=== PATIENT | female | born 1935 | race Caucasian/White ===

== ENCOUNTER 2021-08-31 10:01 | Day surgery (SDC) | payer MEDICARE, BC ==
[2021-08-28 11:04] LABS: BASOPHILS % (AUTO) 0.7 % (0-1); EOSINOPHILS # (AUTO) 0.1 X10'3 (0-0.9); EOSINOPHILS % (AUTO) 1.5 % (0-6); HEMATOCRIT 42.2 % (35.0-45.0); HEMOGLOBIN 13.8 g/dl (12.0-16.0); LYMPHOCYTES # (AUTO) 1.1 X10'3 (1.1-4.8); LYMPHOCYTES % (AUTO) 18.8 % (21-51); MEAN CORPUSCULAR HEMOGLOBIN 30.8 PG (27.0-31.0); MEAN CORPUSCULAR HGB CONC 32.7 g/dL (33.0-36.5); MEAN CORPUSCULAR VOLUME 94.1 FL (78-98); MEAN PLATELET VOLUME 8.3 FL (7.4-10.4); MONOCYTES # (AUTO) 0.4 X10'3 (0-0.9); MONOCYTES % (AUTO) 6.6 % (2-12); NEUTROPHILS # (AUTO) 4.4 X10'3 (1.8-7.7); NEUTROPHILS % (AUTO) 72.4 % (42-75); PLATELET COUNT 259 X10'3 (140-440); RED BLOOD COUNT 4.48 X10'6 (4.20-5.60); RED CELL DISTRIBUTION WIDTH 13.6 % (11.5-14.5); WHITE BLOOD COUNT 6.1 X10'3 (4.5-11.0)
[2021-08-28 11:14] LABS: APTT 26 SECONDS (22-32)
[2021-08-31] VITALS (15 sets, daily range): BP systolic 121–148; BP diastolic 54–87
[~2021-08-31] VITALS: Ht 157.5 cm; Wt 55.9 kg
[~2021-08-31 10:01] MED LIST: ADV50250 IH; ADV50250 INH; ALPR-304 PO; AZIT-83 PO; CHOL2000 PO; FLUT16SP26 NS; IPRA3AMP9 NEB; MULT-821 PO; OMEG1CAP54 PO; Prednisone PO; [UNRECOGNIZED DRUG - CODE] MC; iohexol 350MG/ML 100ml bottle IV ONE
[2021-08-31] MEDS ORDERED: ALBU2.5V10 (10:40)
[2021-08-31] MEDS ORDERED: ESCI5TAB16 PO (10:40)
[2021-08-31] MEDS ORDERED: FLUT1BLS4 INH (10:40)
[2021-08-31] MEDS ORDERED: OMEP20CA16 PO (10:40)
[2021-08-31] MEDS ORDERED: nasonex (10:49)
[2021-08-31] MEDS ORDERED: ATR0.5NEB IH (10:49)
[2021-08-31] MEDS ORDERED: MELA10TA PO (10:49)
[2021-08-31] MEDS ORDERED: ZINC50TA60 PO (10:49)
[2021-08-31] MEDS ORDERED: Vitamin B (10:49)
[2021-08-31] MEDS ORDERED: acetylcysteine 200 MG/ml 4ml vial PO PRN (11:24)
[2021-08-31] MEDS ORDERED: normal saline 1,000 ML IV SCH (11:25)
[2021-08-31] MEDS ORDERED: LORazepam 0.5 MG tablet PO PRN (11:25)
[2021-08-31] MEDS ORDERED: LIDOcaine/PRILOcaine 5gm cream TP ONE (11:25)
[2021-08-31] MEDS ORDERED: diphenhydrAMINE 25mg capsule PO PRN (11:25)
[2021-08-31 11:56] LABS: ALBUMIN 3.3 G/DL (3.4-5.0); ANION GAP 10 (8-16); BLOOD UREA NITROGEN 23 MG/DL (7-18); BUN/CREATININE RATIO 30.7 (6.6-38.0); CALCIUM 8.6 MG/DL (8.5-10.1); CHLORIDE 107 MMOL/L (99-107); CREATININE 0.75 MG/DL (0.40-0.90); GLUCOSE 99 MG/DL (70-104); SODIUM 141 MMOL/L (135-145); TOTAL CARBON DIOXIDE 24.1 MMOL/L (24-32); eGFR 73 ML/MIN
[2021-08-31] MEDS ORDERED: verapamil 2.5 mg/ml inj IV ONE (12:30)
[2021-08-31] MEDS ORDERED: midazolam 1 mg/ML 2ml injection ONE (12:30)
[2021-08-31] MEDS ORDERED: fentaNYL/PF 50MCG/1 ML 2ML syringe ONE (12:30)
[2021-08-31] MEDS ORDERED: nitroGLYCERIN-Tridil 50MG/D5W 250 ML IV ONE (12:30)
[2021-08-31] MEDS ORDERED: iohexol 350MG/ML 100ml bottle IV ONE (12:31)
[2021-08-31] MEDS ORDERED: heparin 1,000unit/ml 10ml vial 10 ML ONE (12:31)
[2021-08-31] MEDS ORDERED: LIDOcaine 1% (10mg/ml) 2ml vial ONE (12:31)
[2021-08-31 13:58] LABS: ISTAT HGB ART 12.9 g/dl (12.0-16.0); ISTAT Hct ART 38 %PCV (35-48); ISTAT O2 SATURATION ARTERIAL 95 % (95-98); ISTAT SOURCE BLNK
[2021-08-31 14:00] LABS: ISTAT Hct MIX 39 %PCV (35-48); ISTAT O2 SATURATION MIX VENOUS 71 % (60-80); ISTAT SOURCE BLNK
[2021-08-31] MEDS ORDERED: normal saline 1000ml 1,000 ML IV SCH (16:35)
== END 2021-08-31 18:10 | disposition home or self-care (01) ==
LOC: SSTAY O 10:01
PROVIDERS: ATTEND Internal Medicine Cardiovascular Disease
DX: I25.10 Atherosclerotic heart disease of native coronary artery without angina pectoris (principal); I10 Essential (primary) hypertension; I34.2 Nonrheumatic mitral (valve) stenosis; J44.9 Chronic obstructive pulmonary disease, unspecified; K21.9 Gastro-esophageal reflux disease without esophagitis; I35.0 Nonrheumatic aortic (valve) stenosis; E78.5 Hyperlipidemia, unspecified; F41.9 Anxiety disorder, unspecified; G47.00 Insomnia, unspecified; Z98.890 Other specified postprocedural states; Z80.8 Family history of malignant neoplasm of other organs or systems; Z79.899 Other long term (current) drug therapy
CPT/HCPCS: 36415; 76937; 80048; 82803; 85014; 85025; 85610; 85730; 93005; 93460; 93567; 99152; 99153; C1751; C1769; C1894; J1644; J2250; J3010; J3490; J7030; Q9967; A4620; A5120; A6258; A6402

== ENCOUNTER 2023-09-01 06:07 | Day surgery (SDC) | payer MEDICARE, BC ==
[2023-08-31 13:46] LABS: BASOPHILS # (AUTO) 0.1 X10'3 (0-0.2); BASOPHILS % (AUTO) 0.8 % (0-1); EOSINOPHILS # (AUTO) 0.3 X10'3 (0-0.9); EOSINOPHILS % (AUTO) 2.9 % (0-6); HEMOGLOBIN 12.6 g/dl (12.0-16.0); LYMPHOCYTES # (AUTO) 1.6 X10'3 (1.1-4.8); LYMPHOCYTES % (AUTO) 17.5 % (21-51); MEAN CORPUSCULAR HEMOGLOBIN 31.2 PG (27.0-31.0); MEAN CORPUSCULAR HGB CONC 33.2 g/dL (33.0-36.5); MEAN CORPUSCULAR VOLUME 93.8 FL (78-98); MEAN PLATELET VOLUME 8.6 FL (7.4-10.4); MONOCYTES # (AUTO) 0.7 X10'3 (0-0.9); MONOCYTES % (AUTO) 7.6 % (2-12); NEUTROPHILS # (AUTO) 6.4 X10'3 (1.8-7.7); NEUTROPHILS % (AUTO) 71.2 % (42-75); PLATELET COUNT 232 X10'3 (140-440); RED BLOOD COUNT 4.05 X10'6 (4.20-5.60); RED CELL DISTRIBUTION WIDTH 15.3 % (11.5-14.5)
[2023-08-31 14:00] LABS: APTT 26 SECONDS (22-32); PROTHROMBIN TIME 10.1 SECONDS (9.0-12.0)
[2023-08-31 14:05] LABS: ALBUMIN 2.8 G/DL (3.4-5.0); ANION GAP 7 (8-16); BLOOD UREA NITROGEN 22 MG/DL (7-18); BUN/CREATININE RATIO 26.2 (10.0-20.0); CALCIUM 8.9 MG/DL (8.5-10.1); CHLORIDE 106 MMOL/L (99-107); CREATININE 0.84 MG/DL (0.40-0.90); GLUCOSE 124 MG/DL (70-104); POTASSIUM 3.9 MMOL/L (3.5-5.1); SODIUM 141 MMOL/L (135-145); TOTAL CARBON DIOXIDE 28.4 MMOL/L (24-32); eGFR 64 ML/MIN
[~2023-09-01] VITALS: Ht 154.9 cm; Wt 57.3 kg
[2023-09-01] VITALS (12 sets, daily range): BP systolic 131–158; BP diastolic 54–67; PULSE 64–78; RESP 13–20; TEMP 98.2; O2SAT 92–97
[~2023-09-01 06:07] MED LIST changes: -ADV50250 IH; -ADV50250 INH; +ALBU2.5V10; -ALPR-304 PO; +ATR0.5NEB IH; -AZIT-83 PO; -CHOL2000 PO; +ESCI5TAB16 PO; -FLUT16SP26 NS; +FLUT1BLS4 INH; -IPRA3AMP9 NEB; +MELATONIN10 MG PO; -MULT-821 PO; -OMEG1CAP54 PO; +OMEP20CA16 PO; -Prednisone PO; +Vitamin B; +ZINC50TA60 PO; -[UNRECOGNIZED DRUG - CODE] MC; -iohexol 350MG/ML 100ml bottle IV ONE; +nasonex
[2023-09-01] MEDS ORDERED: LATA2.5D14 EACHEYE (06:55)
[2023-09-01] MEDS ORDERED: ROSU5TAB43 PO (06:55)
[2023-09-01] MEDS ORDERED: MOME17SP15 NAS (06:55)
[2023-09-01] MEDS ORDERED: ALBU18HF2 INH (06:55)
[2023-09-01] MEDS ORDERED: IPRA3AMP31 INH (06:55)
[2023-09-01] MEDS ORDERED: LORA-268 PO (06:55)
[2023-09-01] MEDS ORDERED: verapamil 2.5 mg/ml inj IV ONE (07:27)
[2023-09-01] MEDS ORDERED: midazolam 1 mg/ML 2ml injection ONE (07:27)
[2023-09-01] MEDS ORDERED: fentaNYL/PF 50MCG/1 ML 2ML syringe ONE (07:28)
[2023-09-01] MEDS ORDERED: iohexol 350 MG/ML 50ML vial IV ONE ×2 (07:28→09:01)
[2023-09-01] MEDS ORDERED: iohexol 350MG/ML 100ml bottle IV ONE (07:28)
[2023-09-01] MEDS ORDERED: heparin 1,000unit/ml 10ml vial 10 ML ONE (07:28)
[2023-09-01] MEDS ORDERED: nitroGLYCERIN 500mcg/5mL D5W 5 ML IV ONE (07:28)
[2023-09-01] MEDS ORDERED: LIDOcaine 1% 30ml preserv. free vial ONE (07:30)
[2023-09-01] MEDS: normal saline 1,000 ML IV SCH (07:31)
[2023-09-01] MEDS: LORazepam 0.5 MG tablet PO PRN (07:32)
[2023-09-01] MEDS: diphenhydrAMINE 25mg capsule PO PRN (07:32)
[2023-09-01] MEDS ORDERED: heparin 1,000 UNITS/NS 500ml 500 ML ONE (08:43)
[2023-09-01] MEDS ORDERED: normal saline 1000ml 1,000 ML IV ONE (10:15)
[2023-09-01 15:38] LABS: ISTAT HGB ART 11.6 g/dl (12.0-16.0); ISTAT Hct ART 34 %PCV (35-45); ISTAT O2 SATURATION ARTERIAL 94 % (95-98); ISTAT SOURCE ART
== END 2023-09-01 16:00 | disposition home or self-care (01) ==
LOC: SSTAY O 06:07
PROVIDERS: ATTEND Internal Medicine Cardiovascular Disease
DX: I35.0 Nonrheumatic aortic (valve) stenosis (principal); I25.10 Atherosclerotic heart disease of native coronary artery without angina pectoris; I10 Essential (primary) hypertension; E78.5 Hyperlipidemia, unspecified; J44.9 Chronic obstructive pulmonary disease, unspecified; K21.9 Gastro-esophageal reflux disease without esophagitis; F41.9 Anxiety disorder, unspecified; G47.00 Insomnia, unspecified; Z79.899 Other long term (current) drug therapy; Z96.641 Presence of right artificial hip joint; Z88.0 Allergy status to penicillin; Z88.8 Allergy status to other drugs, medicaments and biological substances; Z80.9 Family history of malignant neoplasm, unspecified
CPT/HCPCS: 36415; 76937; 80048; 82803; 85014; 85025; 85610; 85730; 93005; 93460; 93567; 99152; 99153; A4615; A6258; A6402; C1725; C1751; C1769; C1894; J1644; J2001; J2250; J3010; J3490; J7030; Q0163; Q9967; Z7610; A6449

== ENCOUNTER 2023-09-30 11:02 | Outpatient (CLI) | payer MEDICARE, BC ==
[~2023-09-30] VITALS: Ht 154.9 cm; Wt 56.7 kg
[~2023-09-30 11:02] MED LIST changes: +ALBU18HF2 INH; -ALBU2.5V10; -ATR0.5NEB IH; +IPRA3AMP31 INH; +LATA2.5D14 EACHEYE; +LORA-268 PO; +MOME17SP15 NAS; +ROSU5TAB43 PO; -nasonex
[2023-09-30 12:08] LABS: BASOPHILS # (AUTO) 0.1 X10'3 (0-0.2); BASOPHILS % (AUTO) 1.2 % (0-1); EOSINOPHILS # (AUTO) 0.2 X10'3 (0-0.9); EOSINOPHILS % (AUTO) 2.7 % (0-6); HEMATOCRIT 38.5 % (35.0-45.0); HEMOGLOBIN 12.5 g/dl (12.0-16.0); LYMPHOCYTES # (AUTO) 1.4 X10'3 (1.1-4.8); LYMPHOCYTES % (AUTO) 21.9 % (21-51); MEAN CORPUSCULAR HEMOGLOBIN 30.8 PG (27.0-31.0); MEAN CORPUSCULAR HGB CONC 32.5 g/dL (33.0-36.5); MEAN PLATELET VOLUME 8.7 FL (7.4-10.4); MONOCYTES # (AUTO) 0.5 X10'3 (0-0.9); MONOCYTES % (AUTO) 7.2 % (2-12); NEUTROPHILS # (AUTO) 4.4 X10'3 (1.8-7.7); PLATELET COUNT 243 X10'3 (140-440); RED BLOOD COUNT 4.06 X10'6 (4.20-5.60); WHITE BLOOD COUNT 6.6 X10'3 (4.5-11.0)
[2023-09-30 12:19] LABS: APTT 25 SECONDS (22-32); INR 0.9 INR; PROTHROMBIN TIME 10.2 SECONDS (9.0-12.0)
[2023-09-30 12:20] LABS: ALANINE AMINOTRANSFERASE 18 U/L (12-78); ALBUMIN 3.1 G/DL (3.4-5.0); ALBUMIN/GLOBULIN RATIO 0.9 (1.1-1.5); ALKALINE PHOSPHATASE 76 IU/L (46-116); ANION GAP 5 (8-16); ASPARTATE AMINO TRANSFERASE 21 U/L (10-37); BILIRUBIN,TOTAL 0.6 MG/DL (0.1-1.0); BLOOD UREA NITROGEN 16 MG/DL (7-18); BUN/CREATININE RATIO 21.9 (10.0-20.0); CALCIUM 8.9 MG/DL (8.5-10.1); CHLORIDE 106 MMOL/L (99-107); CREATININE 0.73 MG/DL (0.40-0.90); GLUCOSE 102 MG/DL (70-104); POTASSIUM 4.1 MMOL/L (3.5-5.1); SODIUM 138 MMOL/L (135-145); TOTAL CARBON DIOXIDE 27.5 MMOL/L (24-32); TOTAL PROTEIN 6.6 G/DL (6.4-8.2); eGFR 75 ML/MIN
[2023-09-30] MEDS ORDERED: IODIXANOL 320 MG/ML INFUS..BTL 100ML IV ONE (12:29)
[2023-09-30 13:42] LABS: ABG BASE EXCESS -3.3 mmol/L (-2.0-2.0); ABG HCO3 19.8 mmol/L (22.0-26.0); ABG OXYGEN SATURATION 89.4 % (92-98.5); ABG PCO2 (T) 30.5 mmHg (32.0-45.0); ABG PH (T) 7.431 (7.350-7.450); ABG PO2 (T) 58.1 mmHg (75.0-100.0); ALLEN'S TEST POSITIVE; FCOHb 0.3 % (0.5-1.5); FHHb 10.5 % (0.0-5.0); FMetHb 0.2 % (0.0-1.5); MODE ROOM AIR; TOTAL HEMOGLOBIN 13.6 G/dl (12.0-16.0)
[2023-09-30] MEDS: albuterol 2.5 MG/3 ML nebule NEB ONE (14:23)
[2023-09-30 14:25] VITALS: PULSE 75; RESP 20; O2SAT 85
[2023-09-30 14:38] VITALS: PULSE 86; RESP 18
== END 2023-09-30 23:59 | disposition home or self-care (01) ==
LOC: VAS 11:02
PROVIDERS: ATTEND Internal Medicine Cardiovascular Disease
DX: J43.2 Centrilobular emphysema (principal); N28.1 Cyst of kidney, acquired; I65.23 Occlusion and stenosis of bilateral carotid arteries; I35.0 Nonrheumatic aortic (valve) stenosis; R06.02 Shortness of breath; I70.0 Atherosclerosis of aorta; M47.816 Spondylosis without myelopathy or radiculopathy, lumbar region; M43.16 Spondylolisthesis, lumbar region; R07.9 Chest pain, unspecified; R94.39 Abnormal result of other cardiovascular function study; M47.814 Spondylosis without myelopathy or radiculopathy, thoracic region
CPT/HCPCS: 36415; 36600; 71046; 71275; 74174; 75572; 80053; 82803; 85018; 85025; 85610; 85730; 93880; 94060; 94727; 94729; 94760; Q9967

== ENCOUNTER 2023-11-25 05:28 | Inpatient (IN) | payer MEDICARE, BC ==
[2023-11-21 11:05] LABS: BASOPHILS # (AUTO) 0.1 X10'3 (0-0.2); BASOPHILS % (AUTO) 0.7 % (0-1); EOSINOPHILS # (AUTO) 0.1 X10'3 (0-0.9); LYMPHOCYTES # (AUTO) 1.1 X10'3 (1.1-4.8); LYMPHOCYTES % (AUTO) 13.9 % (21-51); MEAN CORPUSCULAR HGB CONC 32.5 g/dL (33.0-36.5); MEAN CORPUSCULAR VOLUME 92.5 FL (78-98); MEAN PLATELET VOLUME 8.2 FL (7.4-10.4); MONOCYTES # (AUTO) 0.4 X10'3 (0-0.9); MONOCYTES % (AUTO) 5.4 % (2-12); NEUTROPHILS # (AUTO) 6.3 X10'3 (1.8-7.7); PRE OP HEMATOCRIT 40.8 % (35.0-45.0); PRE OP HEMOGLOBIN 13.2 g/dL (12.0-16.0); PRE OP PLATELET COUNT 254 X10'3 (140-440); RED BLOOD COUNT 4.41 X10'6 (4.20-5.60); RED CELL DISTRIBUTION WIDTH 14.2 % (11.5-14.5)
[2023-11-21 11:10] LABS: BILIRUBIN,URINE NEGATIVE (Neg); CLARITY,URINE SLIGHTLY CLOUDY (Clear); COLOR,URINE YELLOW (Yellow); GLUCOSE, URINE NEGATIVE (Neg); KETONES,URINE NEGATIVE (Neg); LEUKOCYTE ESTERASE ,URINE NEGATIVE (Neg); NITRITES, URINE NEGATIVE (Neg); OCCULT BLOOD,URINE NEGATIVE (Neg); PROTEIN,URINE NEGATIVE (Neg); UROBILINOGEN,URINE 0.2 E.U/dL (0.2-1.0)
[2023-11-21 11:15] LABS: UA COLLECTION TYPE CLN CATCH MIDSTREAM
[2023-11-21 11:16] LABS: BACTERIA,URINE NONE SEEN /HPF (Neg); MUCUS STRANDS FEW /LPF (Neg); RBC,URINE 0-2 /HPF (0-2); SQUAMOUS EPITHELIAL CELL,UR FEW /LPF (FEW); WBC,URINE 0-4 /HPF (0-4)
[2023-11-21 11:27] LABS: PRE OP PROTIME 10.2 SECONDS (9.0-12.0)
[2023-11-21 11:46] LABS: ALBUMIN 3.3 G/DL (3.4-5.0); ALBUMIN/GLOBULIN RATIO 0.9 (1.1-1.5); ALKALINE PHOSPHATASE 84 IU/L (46-116); BLOOD UREA NITROGEN 23 MG/DL (7-18); CHLORIDE 106 MMOL/L (99-107); CREATININE 0.82 MG/DL (0.40-0.90); PRE OP ALT 15 U/L (30-65); PRE OP ANION GAP 7 (8-16); PRE OP AST 24 U/L (10-37); PRE OP BILIRUB, TOTAL 0.5 MG/DL (0.0-1.0); PRE OP GLUCOSE 99 MG/DL (70-104); PRE OP POTASSIUM 4.1 MMOL/L (3.4-5.1); PRE OP SODIUM 141 MMOL/L (135-145); PRO BRAIN NATRIURETIC PEPTIDE 720 PG/ML (0-450); TOTAL CARBON DIOXIDE 28.5 MMOL/L (24-32); TOTAL PROTEIN 6.8 G/DL (6.4-8.2); eGFR 66 ML/MIN
[2023-11-25] VITALS (47 sets, daily range): BP systolic 86–188; BP diastolic 43–94; PULSE 68–134; RESP 11–31; TEMP 97–97.7; O2SAT 91–99
[~2023-11-25] VITALS: Ht 154.9 cm; Wt 57.6 kg
[~2023-11-25 05:28] MED LIST changes: -ALBU18HF2 INH; +ASCO-134 PO; +CHOL100046 PO; -LATA2.5D14 EACHEYE; -LORA-268 PO; -MELATONIN10 MG PO; -MOME17SP15 NAS; +OMEG-133 PO; -ROSU5TAB43 PO; +VITA100049 PO; +VITA100C25 PO; +VITA1CAP PO; -Vitamin B; -ZINC50TA60 PO; +[UNRECOGNIZED DRUG - OTHER] INH
[2023-11-25] MEDS: phenylephrine inj 50 MG in normal saline 250ml IV solN IV SCH (05:50)
[2023-11-25] MEDS: nitroPRUSSIDE (NIPRIDE) (200MCG/ML) 100ML Drip IV SCH (05:55)
[2023-11-25] MEDS: ringers solution, lacted 1,000 ML IV SCH (06:18)
[2023-11-25] MEDS: aspirin 325mg tablet PO ONE (06:19)
[2023-11-25] MEDS: vancomycin/NS 1 GM in NS 250 ML IV ONE (06:19)
[2023-11-25] MEDS: famotidine 20mg tablet PO ONE (06:19)
[2023-11-25] MEDS: protamine sulfate 10mg/ml inj. ONE (06:35)
[2023-11-25] MEDS ORDERED: iohexol 350MG/ML 100ml bottle IV ONE (06:43)
[2023-11-25] MEDS ORDERED: heparin 1,000 UNITS/NS 500ml 1,500 ML ONE (06:43)
[2023-11-25] MEDS: hydrocortisone sod succ/PF 100mg/2ml inj. ONE (06:54)
[2023-11-25] MEDS: ipratropium/albuterol 3ml nebule NEB PRN (07:02)
[2023-11-25] MEDS ORDERED: sevoflurane 250ml liquid IH ONE (07:05)
[2023-11-25] MEDS ORDERED: fentaNYL/PF 50MCG/1 ML 2ML syringe ONE (07:07)
[2023-11-25] MEDS ORDERED: midazolam 1 mg/ML 2ml injection ONE (07:07)
[2023-11-25] MEDS ORDERED: LIDOcaine 1% 30ml preserv. free vial ONE (07:11)
[2023-11-25] MEDS ORDERED: ipratropium/albuterol 3ml nebule NEB PRN (07:20)
[2023-11-25] MEDS ORDERED: heparin 1,000unit/ml 10ml vial 10 ML ONE (07:31)
[2023-11-25] MEDS ORDERED: LIDOcaine 2% (20mg/ml) 5ml vial ONE (07:31)
[2023-11-25] MEDS ORDERED: propofol inj 20 ML IV ONE (07:31)
[2023-11-25] MEDS: Fluticasone/Umeclidin/Vilanter (Trelegy Ellipta 100-62.5-25) INHALER IH SCH (08:00)
[2023-11-25] MEDS ORDERED: VITAMIN K2 PO SCH (08:00)
[2023-11-25] MEDS ORDERED: [UNRECOGNIZED DRUG - OTHER] INH SCH (08:00)
[2023-11-25] MEDS ORDERED: potassium Cl 40MEQ/1/2NS 520ml 520 ML IV PRN (08:30)
[2023-11-25] MEDS ORDERED: HYDROcodone/acetaminophen 5mg/325mg tablet PO PRN (08:30)
[2023-11-25] MEDS ORDERED: ALPRAZolam 0.25mg tablet PO PRN (08:30)
[2023-11-25] MEDS ORDERED: docusate sod 100mg capsule PO PRN (08:30)
[2023-11-25] MEDS ORDERED: magnesium sulf-water 4G/100mL 100 ML IV PRN (08:30)
[2023-11-25] MEDS ORDERED: potassium Cl 40MEQ/270ML bag 250 ML IV PRN (08:30)
[2023-11-25] MEDS ORDERED: pantoprazole 40mg Tablet.DR PO PRN (08:30)
[2023-11-25] MEDS ORDERED: potassium Cl 20mEq/100mL bag 100 ML IV PRN (08:30)
[2023-11-25] MEDS ORDERED: diphenhydrAMINE 25mg capsule PO PRN (08:30)
[2023-11-25] MEDS ORDERED: ondansetron/PF 4mg/2ml inj IV PRN (08:30)
[2023-11-25] MEDS ORDERED: potassium Cl 20 mEq SR tablet PO PRN (08:30)
[2023-11-25] MEDS ORDERED: magnesium sulf-water 2g/50mL 50 ML IV PRN (08:30)
[2023-11-25] MEDS ORDERED: proCHLORperazine 10 MG/2 ml inj IV PRN (08:30)
[2023-11-25] MEDS ORDERED: labetalol 20mg/4ml (5mg/ml) syringe IV PRN (08:30)
[2023-11-25] MEDS ORDERED: potassium CL 10mEq/100ml bag 100 ML IV PRN (08:30)
[2023-11-25] MEDS: hydrALAZINE 20mg/ml inj. IV PRN (10:12)
[2023-11-25] MEDS: ondansetron/PF 4mg/2ml inj IV PRN (10:13)
[2023-11-25] MEDS: metoprolol tartrate 1mg/ml inj IV PRN (10:23)
[2023-11-25] MEDS ORDERED: amiodarone 50MG/ML inj IV ONE (11:35)
[2023-11-25] MEDS: morphine 2 MG/ML inj. syringe IV ONE (11:38)
[2023-11-25] MEDS: furosemide 40mg/4ml inj ONE (11:39)
[2023-11-25] MEDS: morphine 4 MG/ML inj SYRINge ONE (11:39)
[2023-11-25 11:47] LABS: ABG BASE EXCESS -1.2 mmol/L (-2.0-3.0); ABG HCO3 22.7 mmol/L (21.0-28.0); ABG OXYGEN SATURATION 99.1 % (94.0-98.0); ABG PCO2 (T) 35.6 mmHg (32.0-45.0); ABG PH (T) 7.423 (7.350-7.450); ABG PO2 (T) 139.3 mmHg (83.0-108.0); FCOHb 0.5 % (0.5-1.5); FHHb 0.9 % (0.0-5.0); FMetHb 0.3 % (0.0-1.5); FO2Hb 98.3 % (94.0-98.0); MODE MASK - BIPAP; RESPIRATORY RATE 12 b/min; TIDAL VOLUME 508 mL; TOTAL HEMOGLOBIN 12.7 G/dl (12.0-16.0)
[2023-11-25] MEDS: amiodarone 150mg/dext, iso-os 100 ML IV ONE ×2 (11:56→12:51)
[2023-11-25] MEDS: normal saline 1000ml 1,000 ML IV SCH (15:00)
[2023-11-25] MEDS: sod chloride 0.9% 10ml flush syringe IV SCH (16:00)
[2023-11-25] MEDS: vancomycin/NS 1 GM ADD-VANTAGE 250 ML IV SCH (20:56)
[2023-11-26] MEDS: acetaminophen 325mg tablet PO PRN (03:10)
[2023-11-26 06:32] VITALS: BP 128/52; PULSE 77; RESP 20; TEMP 96.7; O2SAT 97
[2023-11-26] MEDS ORDERED: ASPI-500 PO (06:54)
[2023-11-26 08:54] LABS: BASOPHILS # (AUTO) 0.1 X10'3 (0-0.2); BASOPHILS % (AUTO) 0.6 % (0-1); EOSINOPHILS # (AUTO) 0.1 X10'3 (0-0.9); EOSINOPHILS % (AUTO) 0.7 % (0-6); HEMATOCRIT 34.8 % (35.0-45.0); HEMOGLOBIN 11.3 g/dl (12.0-16.0); LYMPHOCYTES % (AUTO) 12.1 % (21-51); MEAN CORPUSCULAR HGB CONC 32.4 g/dL (33.0-36.5); MEAN CORPUSCULAR VOLUME 92.6 FL (78-98); MEAN PLATELET VOLUME 8.6 FL (7.4-10.4); MONOCYTES # (AUTO) 0.9 X10'3 (0-0.9); NEUTROPHILS # (AUTO) 6.4 X10'3 (1.8-7.7); NEUTROPHILS % (AUTO) 75.6 % (42-75); PLATELET COUNT 195 X10'3 (140-440); RED BLOOD COUNT 3.76 X10'6 (4.20-5.60); RED CELL DISTRIBUTION WIDTH 14.3 % (11.5-14.5); WHITE BLOOD COUNT 8.5 X10'3 (4.5-11.0)
[2023-11-26] MEDS: ascorbic acid 500mg tablet PO SCH (09:06)
[2023-11-26] MEDS: pantoprazole 40mg Tablet.DR PO SCH (09:07)
[2023-11-26] MEDS: aspirin 81mg tab.chew PO SCH (09:07)
[2023-11-26] MEDS: cholecalciferol (vitamin D3) 1,000 unit (25mcg) tablet PO SCH (09:09)
[2023-11-26] MEDS: OMEGA-3/DHA/EPA/FISH OIL 1 EACH CAPSULE.DR PO SCH (09:09)
[2023-11-26] MEDS: vitamin B comp w/Vit. C tab 1 TAB TABLET PO SCH (09:09)
[2023-11-26] MEDS: ESCITALOPRAM 10 mg tablet 10 MG TABLET PO SCH (09:09)
[2023-11-26 09:10] LABS: ALANINE AMINOTRANSFERASE 16 U/L (12-78); ALBUMIN 2.8 G/DL (3.4-5.0); ALBUMIN/GLOBULIN RATIO 0.9 (1.1-1.5); ALKALINE PHOSPHATASE 79 IU/L (46-116); ANION GAP 2 (8-16); ASPARTATE AMINO TRANSFERASE 20 U/L (10-37); BILIRUBIN,TOTAL 0.6 MG/DL (0.1-1.0); BLOOD UREA NITROGEN 22 MG/DL (7-18); BUN/CREATININE RATIO 27.5 (10.0-20.0); CALCIUM 8.6 MG/DL (8.5-10.1); CHLORIDE 108 MMOL/L (99-107); GLUCOSE 108 MG/DL (70-104); MAGNESIUM 1.9 MG/DL (1.5-2.4); POTASSIUM 4.1 MMOL/L (3.5-5.1); PRO BRAIN NATRIURETIC PEPTIDE 1679 PG/ML (0-450); SODIUM 141 MMOL/L (135-145); TOTAL CARBON DIOXIDE 30.8 MMOL/L (24-32); eCRCL 37 ML/MIN; eGFR 68 ML/MIN
[2023-11-26 11:00] VITALS: BP 136/60; PULSE 66; RESP 17; TEMP 97.2; O2SAT 97
== END 2023-11-26 12:01 | disposition home or self-care (01) | DRG 266 ==
LOC: PAS IN 05:28 → PCU 3S 14:20
PROVIDERS: ADMIT Internal Medicine Cardiovascular Disease; ATTEND Internal Medicine Cardiovascular Disease
PROC: B41D1ZZ Fluoroscopy of Aorta and Bilateral Lower Extremity Arteries using Low Osmolar Contrast (ICD-10-PCS; 2023-11-25)
PROC: 03HY32Z Insertion of Monitoring Device into Upper Artery, Percutaneous Approach (ICD-10-PCS; 2023-11-25)
PROC: 02RF38Z Replacement of Aortic Valve with Zooplastic Tissue, Percutaneous Approach (ICD-10-PCS; principal; 2023-11-25 07:05)
DX: I35.0 Nonrheumatic aortic (valve) stenosis (principal); Z00.6 Encounter for examination for normal comparison and control in clinical research program; I50.33 Acute on chronic diastolic (congestive) heart failure; I48.91 Unspecified atrial fibrillation; K21.9 Gastro-esophageal reflux disease without esophagitis; J44.9 Chronic obstructive pulmonary disease, unspecified
CPT/HCPCS: 33361; 36415; 36600; 71045; 71046; 76937; 80053; 81001; 82803; 82948; 83735; 83880; 85018; 85025; 85347; 85610; 85730; 86885; 86900; 86901; 86920; 87081; 93005; 93308; 94640; 94660; 94760; A4615; A4618; A6258; A6449; C1756; C1760; C1769; C1894; G0378; J0282; J0360; J1644; J1720; J1940; J2250; J2270; J2371; J2405; J2704; J2720; J3010; J3370; J3490; J7030; J7040; J7050; J7120; P9016; Q9967